=== PATIENT | male | born 1985 | race Two or more races ===

== ENCOUNTER 2023-11-07 22:14 | Emergency (ER) | payer OTHER ==
[~2023-11-07] VITALS: Ht 172.7 cm; Wt 88.6 kg
[2023-11-07 22:20] VITALS: BP 136/95; PULSE 93; RESP 20; TEMP 99
[2023-11-07] MEDS: BACITRACIN 0.9 GM PACKET OINTMENT TP ONE (23:28)
[2023-11-07] MEDS: PERTUSS(ACELL),DIPH,TET/PF 0.5 ML SYRINGE [ADULT] IM. ONE (23:28)
[2023-11-07] MEDS ORDERED: AMOX-457 PO (23:29)
== END 2023-11-07 23:43 | disposition home or self-care (01) ==
LOC: EMS 22:14
DX: S81.852A Open bite, left lower leg, initial encounter (principal); Z90.49 Acquired absence of other specified parts of digestive tract; W54.0XXA Bitten by dog, initial encounter; Y93.89 Activity, other specified; Y92.89 Other specified places as the place of occurrence of the external cause; Y99.8 Other external cause status
CPT/HCPCS: 90471; 90715; 99283